=== PATIENT | male | born 1980 | race Caucasian/White ===

== ENCOUNTER 2016-11-12 20:00 | Emergency (ER) | payer BC, MEDICAID ==
[~2016-11-12] VITALS: Ht 175.3 cm; Wt 92.6 kg
[~2016-11-12 20:00] MED LIST: CLON2TAB PO; INSU100V5 SQ-INSULIN
[2016-11-12 20:01] VITALS: BP 154/96
== END 2016-11-12 20:39 | disposition home or self-care (01) ==
LOC: ED 20:33
DX: L03.011 Cellulitis of right finger (principal); E11.9 Type 2 diabetes mellitus without complications; F41.9 Anxiety disorder, unspecified